=== PATIENT | female | born 1935 | race Two or more races ===

== ENCOUNTER 2020-04-17 11:54 | Emergency (ER) | payer MEDICARE, OTHER ==
[~2020-04-17] VITALS: Ht 154.9 cm; Wt 65.0 kg
[~2020-04-17 11:54] MED LIST: DICY10CA88 PO; OMEP-84 PO; SOLI10TA6 PO; TRAM50TA2 PO; VERA120T19 PO
[2020-04-17] MEDS ORDERED: TRAM50TA2 PO (13:51)
[2020-04-17 14:36] VITALS: BP 155/86
== END 2020-04-17 14:35 | disposition home or self-care (01) ==
LOC: ER 11:54
DX: M25.531 Pain in right wrist (principal); I10 Essential (primary) hypertension; M19.90 Unspecified osteoarthritis, unspecified site; Z98.890 Other specified postprocedural states; Z88.0 Allergy status to penicillin; Z88.6 Allergy status to analgesic agent; Z79.899 Other long term (current) drug therapy; W18.39XA Other fall on same level, initial encounter; Y93.89 Activity, other specified; Y92.89 Other specified places as the place of occurrence of the external cause; Y99.8 Other external cause status
CPT/HCPCS: 29125; 73100; 99284

== ENCOUNTER 2021-08-22 07:40 | Day surgery (SDC) | payer BC, MEDICAID ==
[2021-08-18 15:37] LABS: BASOPHILS # (AUTO) 0.1 X10'3 (0-0.2); BASOPHILS % (AUTO) 1.6 % (0-1); EOSINOPHILS # (AUTO) 0.1 X10'3 (0-0.9); EOSINOPHILS % (AUTO) 2.4 % (0-6); LYMPHOCYTES # (AUTO) 1.9 X10'3 (1.1-4.8); LYMPHOCYTES % (AUTO) 31.7 % (21-51); MEAN CORPUSCULAR HEMOGLOBIN 29.1 PG (27.0-31.0); MEAN CORPUSCULAR HGB CONC 32.7 g/dL (33.0-36.5); MEAN CORPUSCULAR VOLUME 88.9 FL (78-98); MEAN PLATELET VOLUME 9.5 FL (7.4-10.4); MONOCYTES # (AUTO) 0.5 X10'3 (0-0.9); MONOCYTES % (AUTO) 7.6 % (2-12); NEUTROPHILS # (AUTO) 3.4 X10'3 (1.8-7.7); NEUTROPHILS % (AUTO) 56.7 % (42-75); PRE OP HEMATOCRIT 40.1 % (35.0-45.0); PRE OP HEMOGLOBIN 13.1 g/dL (12.0-16.0); PRE OP PLATELET COUNT 285 X10'3 (140-440); RED BLOOD COUNT 4.51 X10'6 (4.20-5.60); RED CELL DISTRIBUTION WIDTH 14.9 % (11.5-14.5)
[2021-08-18 15:55] LABS: ALBUMIN 3.7 G/DL (3.4-5.0); ALKALINE PHOSPHATASE 71 IU/L (46-116); BLOOD UREA NITROGEN 12 MG/DL (7-18); BUN/CREATININE RATIO 22.6 (6.6-38.0); CHLORIDE 102 MMOL/L (99-107); CREATININE 0.53 MG/DL (0.40-0.90); PRE OP ALT 24 U/L (30-65); PRE OP ANION GAP 9 (8-16); PRE OP AST 18 U/L (10-37); PRE OP BILIRUB, TOTAL 0.3 MG/DL (0.0-1.0); PRE OP GLUCOSE 92 MG/DL (70-104); PRE OP POTASSIUM 3.9 MMOL/L (3.4-5.1); PRE OP SODIUM 140 MMOL/L (135-145); TOTAL CARBON DIOXIDE 28.7 MMOL/L (24-32); TOTAL PROTEIN 7.5 G/DL (6.4-8.2); eGFR > 90 ML/MIN
[~2021-08-22] VITALS: Ht 154.9 cm; Wt 63.6 kg
[2021-08-22] VITALS (21 sets, daily range): BP systolic 128–213; BP diastolic 56–95
[~2021-08-22 07:40] MED LIST changes: +BUPIVAcaine 0.5% inj/PF 30 ML ONE; -DICY10CA88 PO; -OMEP-84 PO; -SOLI10TA6 PO; -VERA120T19 PO; +ceFAZolin 1,000 MG in NS 50ML IVPB IV ONE; +famotidine 20mg tablet PO ONE; +ringers solution, lacted 1,000 ML IV SCH
[2021-08-22] MEDS ORDERED: LIDOcaine 0.5% (5mg/ml) 50ml vial ONE (09:32)
[2021-08-22] MEDS ORDERED: FENTANYL CITRATE/PF 50 MCG/1 ML VIAL ONE (09:57)
[2021-08-22] MEDS ORDERED: midazolam 1 mg/ML 2ml injection ONE (10:00)
[2021-08-22] MEDS ORDERED: ceFAZolin 1000mg inj ONE ×2 (10:08→10:09)
[2021-08-22] MEDS ORDERED: 0.9 % SODIUM CHLORIDE 10 ML VIAL ONE (10:08)
[2021-08-22] MEDS ORDERED: propofol inj 20 ML IV ONE (10:09)
[2021-08-22] MEDS ORDERED: meperidine/PF 25mg/ml syringe IV PRN ×3 (10:10)
[2021-08-22] MEDS ORDERED: ringers solution, lacted 1,000 ML IV SCH (10:10)
[2021-08-22] MEDS ORDERED: ondansetron/PF 4mg/2ml inj IV PRN (10:10)
[2021-08-22] MEDS ORDERED: labetalol 20mg/4ml (5mg/ml) syringe IV PRN (10:10)
[2021-08-22] MEDS ORDERED: acetaminophen 1,000mg/100ml IV 100 ML IV PRN (10:10)
[2021-08-22] MEDS ORDERED: morphine 4 MG/ML inj SYRINge IV PRN (10:10)
[2021-08-22] MEDS ORDERED: proCHLORperazine 10 MG/2 ml inj IV PRN (10:10)
[2021-08-22] MEDS ORDERED: BUPIVAcaine 0.5% inj/PF 30 ml vial IJ ONE (10:14)
--- NOTE | 2021-08-22 10:55 | NUR ---
Received from OR via [facility], accompanied by Anesthesiologist DR PANCHAL and report given by Anesthesiologist AND SKIVER HEEL TAP. PT AWAKE, DENIES PAIN, LEFT HAND/TRUMB TO BELOW ELBOW W/CHAD WRAP COVERING INCISION/DRSG INTACT, SCANT AMOUNT OF BLOOD AT TIP OF THUMB DRSG, ELEVATED AND PLACED ICE PACK. Addendum: 08/22/21 at 1145 by Sherine Bailey RN Amended: Links added.
[2021-08-22] MEDS: morphine 2 MG/ML inj. syringe IV PRN ×4 (11:10→12:30)
[2021-08-22] MEDS: hydrALAZINE 20mg/ml inj. IV PRN ×2 (12:01→12:20)
--- NOTE | 2021-08-22 13:55 | NUR ---
PAIN IMPROVED, BP STABLE, PT UP AND ABLE TO AMBULATE SAFELY, VOIDED, TOLERATES ORAL INTAKE. D/C INSTRUCTIONS GIVEN AND GONE OVER W/PT WHO VERBALIZED UNDERSTANDING. PT D/CD TO HOME VIA W/C TO PRIVATE VEHICLE W/O INCIDENT. Addendum: 08/22/21 at 1409 by Sherine Bailey RN Amended: Links added.
== END 2021-08-22 13:55 | disposition home or self-care (01) ==
LOC: PAS 07:40
PROVIDERS: ATTEND Orthopaedic Surgery Hand Surgery
DX: M19.041 Primary osteoarthritis, right hand (principal); Z79.899 Other long term (current) drug therapy; Z20.822 Contact with and (suspected) exposure to COVID-19; Z98.890 Other specified postprocedural states; Z90.49 Acquired absence of other specified parts of digestive tract; Z88.8 Allergy status to other drugs, medicaments and biological substances
CPT/HCPCS: 26860; 36415; 80053; 82948; 85025; 93005; C1713; J0131; J0360; J0690; J2250; J2270; J2704; J3010; J3490; J7030; J7120; S0020; U0003; U0005; Z7506; Z7512; A4215; A4615; A4618; A6449; A7000

== ENCOUNTER 2021-11-23 16:53 | Emergency (ER) | payer BC, MEDICAID ==
[~2021-11-23] VITALS: Ht 154.9 cm; Wt 60.5 kg
[~2021-11-23 16:53] MED LIST changes: -BUPIVAcaine 0.5% inj/PF 30 ML ONE; -ceFAZolin 1,000 MG in NS 50ML IVPB IV ONE; -famotidine 20mg tablet PO ONE; -ringers solution, lacted 1,000 ML IV SCH
[2021-11-23 17:13] VITALS: BP 153/78
== END 2021-11-23 21:22 | disposition home or self-care (01) ==
LOC: ER 16:54
DX: S62.144A Nondisplaced fracture of body of hamate [unciform] bone, right wrist, initial encounter for closed fracture (principal); I10 Essential (primary) hypertension; Z88.0 Allergy status to penicillin; Z88.6 Allergy status to analgesic agent; Z79.899 Other long term (current) drug therapy
CPT/HCPCS: 29125; 73100; 73110; 99284